=== PATIENT | female | born 1975 | race Caucasian/White ===

== ENCOUNTER 2017-03-15 12:39 | Emergency (ER) | payer BC ==
[2017-03-15] MEDS ORDERED: HYDROmorphone 2 MG/ML SDV IVPUSH ONE ×3 (12:52→16:01)
[2017-03-15] MEDS ORDERED: Metoclopramide 10 MG/2 ML SDV IVPUSH ONE ×2 (12:52→14:26)
[2017-03-15] MEDS ORDERED: Lactated Ringers 1,000 ML IV SCH (13:00)
--- NOTE | 2017-03-15 13:00 | EDM.PDOC ---
ED HPI GENERAL MEDICAL PROBLEM - General Chief Complaint: Abdominal Pain Stated Complaint: SEVERE ABDOMINAL PAIN Time Seen by Provider: 03/15/17 12:50 Source of Information: Reports: Patient History Limitations: Reports: No Limitations - History of Present Illness INITIAL COMMENTS - FREE TEXT/NARRATIVE: 42 yo female with a pHx of gastric bypass presents with a 2+ hr duration of RUQ abdominal pain that began today about mid morning after eating keesh and a donut about 2 hrs before that. Still has her gallbladder. No fever. Has some lingering nausea even though she took Zofran 8 mg orally before arrival. No issues with bowel or bladder function. Onset: today Onset Date: 03/15/17 Onset Time: 10:30 Duration: Hour(s):, Constant Location: Reports: abdomen Quality: Reports: Ache, Pressure Severity: severe Improves with: Reports: None Worsens with: Reports: None Context: Reports: Other (Has GB and ate a fatty breakfast today.) Associated Symptoms: Reports: loss of appetite, nausea/vomiting (no vomiting.) . 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 (see below) (Zofran 8 mg po) Right Upper Abdomen Pain Score (Numeric/FACES): 8 - Related Data Allergies Allergy/AdvReac Type Severity Reaction Status Date / Time cefaclor [From Ceclor] Allergy Hives Verified 03/15/17 12:49 erythromycin base Allergy Nausea Verified 03/15/17 12:49 [Erythromycin Base] ofloxacin [From Floxin] Allergy Anaphylactic Verified 03/15/17 12:49 Shock Penicillins Allergy Hives Verified 03/15/17 12:49 Sulfa (Sulfonamide Allergy Hives Verified 03/15/17 12:49 Antibiotics) Home Meds: Home Meds Acetaminophen/HYDROcodone [[place] 325-7.5 MG] 1 - 2 tab PO Q4H PRN #14 tab [Rx] Escitalopram Oxalate [Lexapro] 20 mg PO DAILY 03/15/17 [History] Gabapentin [Neurontin] 100 mg PO BEDTIME 03/15/17 [History] Gabapentin [Neurontin] 200 mg PO DAILY 03/15/17 [History] ED ROS GENERAL - Review of Systems Review Of Systems: See Below Constitutional: Reports: No Symptoms HEENT: Reports: No Symptoms Respiratory: Reports: No Symptoms Cardiovascular: Reports: No Symptoms Endocrine: Reports: No Symptoms GI/Abdominal: Reports: Abdominal Pain, Anorexia, Decreased Appetite, Nausea. Denies: Black Stool, Bloody Stool, Constipation, Diarrhea, Difficulty Swallowing , Distension, Hematemesis, Hematochezia, Melena, Mucous in Stool, Stool Incontinence, Vomiting : Reports: No Symptoms Musculoskeletal: Reports: No Symptoms Skin: Reports: No Symptoms Neurological: Reports: No Symptoms ED EXAM, GI/ABD - Physical Exam Exam: See Below Exam Limited By: No Limitations General Appearance: Alert, WD/WN, No Apparent Distress Eyes: Bilateral: Normal Appearance, EOMI Ears: Normal External Exam, Normal Canal, Hearing Grossly Normal Nose: Normal Inspection, Normal Mucosa, No Blood Throat/Mouth: Normal Inspection, Normal Lips, Normal Teeth, Normal Oropharynx, Normal Voice, No Airway Compromise Head: Atraumatic, Normocephalic Neck: Normal Inspection, Supple, Non-Tender Respiratory/Chest: No Respiratory Distress, Lungs Clear, Normal Breath Sounds, No Accessory Muscle Use Cardiovascular: Regular Rate, Rhythm, No Edema GI/Abdominal: Normal Bowel Sounds, Soft, No Distention, Tenderness (epigastric and more so in the RUQ), Tripp's Sign. No: Distention, Guarding, Rebound, Rigidity, Hernia, McBurney's Sign Back Exam: Normal Inspection. No: CVA Tenderness (R), CVA Tenderness (L) Extremities: Normal Inspection, Normal Range of Motion, Non-Tender, No Pedal Edema Neurological: Alert, Oriented, CN II-XII Intact, Normal Cognition, No Motor/ Sensory Deficits Psychiatric: Normal Affect, Normal Mood Skin Exam: Warm, Dry, Intact, Normal Color, No Rash Lymphatic: No Adenopathy Course - Vital Signs Text/Narrative:: LR IV @ 150 ml/h, Dilaudid 0.5 mg IV x 3, Reglan 10 mg IV + 5 mg IV, Toradol 30 mg IV GB ultrasound-gallbladder is distended to about 12 cm, no stone seen. Dr. Pederson to see in the ED, called at 1605h. Last Recorded V/S: Last Vital Signs Temp 36.5 C 03/15/17 17:04 Pulse 78 03/15/17 17:04 Resp 16 03/15/17 17:04 BP 125/71 03/15/17 17:04 Pulse Ox 98 03/15/17 17:04 - Orders/Labs/Meds Orders: Active Orders 24 hr Category Date Time Status Abdomen Ltd [US] Stat Exams 03/15/17 14:51 Taken Lactated Ringers [Ringers, Lactated] 1,000 ml Med 03/15/17 13:00 Active IV ASDIRECTED Medication Orders Lactated Ringer's (Ringers, Lactated) 1,000 mls @ 150 mls/hr IV ASDIRECTED QUIQUE Last Admin: 03/15/17 13:11 Dose: 150 mls/hr Labs: Laboratory Tests 03/15/17 03/15/17 03/15/17 Range/Units 13:11 13:11 13:11 WBC 9.1 (4.5-12.0) X10-3/uL RBC 4.21 (3.23-5.20) x10(6)uL Hgb 13.4 (11.5-15.5) g/dL Hct 39.2 (30.0-51.3) % MCV 93.1 (80-96) fL MCH 31.9 (27.7-33.6) pg MCHC 34.3 (32.2-35.4) g/dL RDW 11.7 (11.5-15.5) % Plt Count 246 (125-369) X10(3)uL Sodium 137 (135-145) mmol/L Potassium 3.8 (3.5-5.3) mmol/L Chloride 103 (100-110) mmol/L Carbon Dioxide 25 (23-29) mmol/L BUN 20 (5-20) mg/dL Creatinine 0.7 (0.6-1.3) mg/dL Est Cr Clr Drug Dosing 90.41 mL/min Estimated GFR (MDRD) > 60 (>60) BUN/Creatinine Ratio 28.6 H (9-20) Glucose 104 (80-116) mg/dL Calcium 9.0 (8.6-10.2) mg/dL Total Bilirubin 0.4 (0.1-1.3) mg/dL AST 25 (5-27) IU/L ALT 26 (14-26) IU/L Alkaline Phosphatase 71 (56-112) IU/L C-Reactive Protein < 0.5 (0.0-1.0) mg/dL Total Protein 7.0 (6.0-8.0) g/dL Albumin 4.3 (3.5-5.2) g/dL Globulin 2.7 g/dL Albumin/Globulin Ratio 1.6 Amylase 54 (28-100) U/L Urine Color (YELLOW) Urine Appearance (CLEAR) Urine pH (5.0-6.5) Ur Specific [place] (1.010-1.025) Urine Protein (NEGATIVE) mg/dL Urine Glucose (UA) (NEGATIVE) mg/dL Urine Ketones (NEGATIVE) mg/dL Urine Occult Blood (NEGATIVE) Urine Nitrite (NEGATIVE) Urine Bilirubin (NEGATIVE) Urine Urobilinogen (NEGATIVE) mg/dL Ur Leukocyte Esterase (NEGATIVE) Urine RBC (0) Urine WBC (0) Ur Squamous Epith Cells (NS,R,O) Calcium Oxalate Crystal (NS) Urine Bacteria (NS) 03/15/17 Range/Units 14:17 WBC (4.5-12.0) X10-3/uL RBC (3.23-5.20) x10(6)uL Hgb (11.5-15.5) g/dL Hct (30.0-51.3) % MCV (80-96) fL MCH (27.7-33.6) pg MCHC (32.2-35.4) g/dL RDW (11.5-15.5) % Plt Count (125-369) X10(3)uL Sodium (135-145) mmol/L Potassium (3.5-5.3) mmol/L Chloride (100-110) mmol/L Carbon Dioxide (23-29) mmol/L BUN (5-20) mg/dL Creatinine (0.6-1.3) mg/dL Est Cr Clr Drug Dosing mL/min Estimated GFR (MDRD) (>60) BUN/Creatinine Ratio (9-20) Glucose (80-116) mg/dL Calcium (8.6-10.2) mg/dL Total Bilirubin (0.1-1.3) mg/dL AST (5-27) IU/L ALT (14-26) IU/L Alkaline Phosphatase (56-112) IU/L C-Reactive Protein (0.0-1.0) mg/dL Total Protein (6.0-8.0) g/dL Albumin (3.5-5.2) g/dL Globulin g/dL Albumin/Globulin Ratio Amylase (28-100) U/L Urine Color Yellow (YELLOW) Urine Appearance Clear (CLEAR) Urine pH 5.0 (5.0-6.5) Ur Specific [place] 1.025 (1.010-1.025) Urine Protein Negative (NEGATIVE) mg/dL Urine Glucose (UA) Normal (NEGATIVE) mg/dL Urine Ketones Negative (NEGATIVE) mg/dL Urine Occult Blood Negative (NEGATIVE) Urine Nitrite Negative (NEGATIVE) Urine Bilirubin Negative (NEGATIVE) Urine Urobilinogen Normal (NEGATIVE) mg/dL Ur Leukocyte Esterase Negative (NEGATIVE) Urine RBC 0-5 (0) Urine WBC 0-5 (0) Ur Squamous Epith Cells Occasional (NS,R,O) Calcium Oxalate Crystal Moderate H (NS) Urine Bacteria Rare H (NS) Meds: Medications Generic Name Dose Route Start Last Admin Trade Name Freq PRN Reason Stop Dose Admin Lactated Ringer's 1,000 mls @ 150 mls/hr 03/15/17 13:00 03/15/17 13:11 Ringers, Lactated IV 150 mls/hr ASDIRECTED QUIQUE Administration Discontinued Medications Generic Name Dose Route Start Last Admin Trade Name Freq PRN Reason Stop Dose Admin Hydromorphone HCl 0.5 mg 03/15/17 12:52 03/15/17 13:10 Dilaudid IVPUSH 03/15/17 12:53 0.5 mg ONETIME ONE Administration Hydromorphone HCl 0.5 mg 03/15/17 14:00 03/15/17 14:09 Dilaudid IVPUSH 03/15/17 14:01 0.5 mg ONETIME ONE Administration Hydromorphone HCl 0.5 mg 03/15/17 16:01 03/15/17 16:07 Dilaudid IVPUSH 03/15/17 16:02 0.5 mg ONETIME ONE Administration Ketorolac Tromethamine 30 mg 03/15/17 16:05 03/15/17 16:12 Toradol IVPUSH 03/15/17 16:06 30 mg ONETIME ONE Administration Metoclopramide HCl 10 mg 03/15/17 12:52 03/15/17 13:10 Reglan IVPUSH 03/15/17 12:53 10 mg ONETIME ONE Administration Metoclopramide HCl 5 mg 03/15/17 14:26 03/15/17 14:33 Reglan IVPUSH 03/15/17 14:27 5 mg ONETIME ONE Administration Departure - Departure Time of Disposition: 17:16 Disposition: Home, Self-Care 01 Condition: fair Clinical Impression: Biliary colic - Discharge Information Prescriptions: Acetaminophen/HYDROcodone [[place] 325-7.5 MG] 1 - 2 tab PO Q4H PRN #14 tab PRN Reason: Pain - My Orders Last 24 Hours: My Active Orders 03/15/17 13:00 Lactated Ringers [Ringers, Lactated] 1,000 ml IV ASDIRECTED 03/15/17 14:51 Abdomen Ltd [US] Stat - Assessment/Plan Last 24 Hours: My Active Orders 03/15/17 13:00 Lactated Ringers [Ringers, Lactated] 1,000 ml IV ASDIRECTED 03/15/17 14:51 Abdomen Ltd [US] Stat
[2017-03-15] MEDS ORDERED: Morphine 15 MG Tab.ER PO ONE (13:55)
[2017-03-15] MEDS ORDERED: Ketorolac 30 MG/ML SDV IVPUSH ONE (16:05)
[2017-03-15 17:06] VITALS: BP 125/71
--- NOTE | 2017-03-15 17:24 | PCM.CONS ---
H&P History of Present Illness - General Date of Service: 03/15/17 Source of Information: Patient History Limitations: Reports: No Limitations - History of Present Illness Onset of Symptoms: Reports: today, sudden Symptom Onset Date: 03/15/17 Duration of Symptoms: Reports: Hour(s): Location: Reports: abdomen (epigastric and RUQ), back (beneath right shoulder blade) Quality: Reports: Ache, Pressure Worsens with: Reports: Eating Associated Symptoms: Reports: nausea/vomiting Right Upper Abdomen Pain Score (Numeric/FACES): 8 - Related Data Allergies/Adverse Reactions: Allergies Allergy/AdvReac Type Severity Reaction Status Date / Time cefaclor [From Ceclor] Allergy Hives Verified 03/15/17 12:49 erythromycin base Allergy Nausea Verified 03/15/17 12:49 [Erythromycin Base] ofloxacin [From Floxin] Allergy Anaphylactic Verified 03/15/17 12:49 Shock Penicillins Allergy Hives Verified 03/15/17 12:49 Sulfa (Sulfonamide Allergy Hives Verified 03/15/17 12:49 Antibiotics) Home Medications: Home Meds Acetaminophen/HYDROcodone [[place] 325-7.5 MG] 1 - 2 tab PO Q4H PRN #14 tab [Rx] Escitalopram Oxalate [Lexapro] 20 mg PO DAILY 03/15/17 [History] Gabapentin [Neurontin] 100 mg PO BEDTIME 03/15/17 [History] Gabapentin [Neurontin] 200 mg PO DAILY 03/15/17 [History] 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 Social & Family History - Tobacco Use Smoking Status *Q: Former Smoker Years of Tobacco use: 2 Used Tobacco, but Quit: No - Alcohol Use Days Per Week of Alcohol Use: 1 Number of Drinks Per Day: 3 Total Drinks Per Week: 3 - Recreational Drug Use Recreational Drug Use: No H&P Review of Systems - Review of Systems: Review Of Systems: See Below General: Denies: Fever, Chills HEENT: Denies: No Symptoms Pulmonary: Denies: No Symptoms Cardiovascular: Denies: Chest Pain Gastrointestinal: Reports: Abdominal Pain (RUQ, now 12/15 after pain meds) Genitourinary: Reports: No Symptoms Skin: Denies: Jaundice Exam - Exam Exam: See Below - Vital Signs Vital Signs: Last Vital Signs Temp 97.7 F 03/15/17 17:04 Pulse 78 03/15/17 17:04 Resp 16 03/15/17 17:04 BP 125/71 03/15/17 17:04 Pulse Ox 98 03/15/17 17:04 Weight: 83.461 kg - Exam General: Alert, Oriented Lungs: Clear to Auscultation, Normal Respiratory Effort Cardiovascular: Regular Rate, Regular Rhythm Abdomen: Soft, Tenderness (in RUQ), Tripp's Sign. No: Hernia, Mass - Patient Data Lab Results last 24 hrs: Laboratory Results - last 24 hr 03/15/17 03/15/17 03/15/17 Range/Units 13:11 13:11 13:11 WBC 9.1 (4.5-12.0) X10-3/uL RBC 4.21 (3.23-5.20) x10(6)uL Hgb 13.4 (11.5-15.5) g/dL Hct 39.2 (30.0-51.3) % MCV 93.1 (80-96) fL MCH 31.9 (27.7-33.6) pg MCHC 34.3 (32.2-35.4) g/dL RDW 11.7 (11.5-15.5) % Plt Count 246 (125-369) X10(3)uL Sodium 137 (135-145) mmol/L Potassium 3.8 (3.5-5.3) mmol/L Chloride 103 (100-110) mmol/L Carbon Dioxide 25 (23-29) mmol/L BUN 20 (5-20) mg/dL Creatinine 0.7 (0.6-1.3) mg/dL Est Cr Clr Drug Dosing 90.41 mL/min Estimated GFR (MDRD) > 60 (>60) BUN/Creatinine Ratio 28.6 H (9-20) Glucose 104 (80-116) mg/dL Calcium 9.0 (8.6-10.2) mg/dL Total Bilirubin 0.4 (0.1-1.3) mg/dL AST 25 (5-27) IU/L ALT 26 (14-26) IU/L Alkaline Phosphatase 71 (56-112) IU/L C-Reactive Protein < 0.5 (0.0-1.0) mg/dL Total Protein 7.0 (6.0-8.0) g/dL Albumin 4.3 (3.5-5.2) g/dL Globulin 2.7 g/dL Albumin/Globulin Ratio 1.6 Amylase 54 (28-100) U/L Urine Color (YELLOW) Urine Appearance (CLEAR) Urine pH (5.0-6.5) Ur Specific [place] (1.010-1.025) Urine Protein (NEGATIVE) mg/dL Urine Glucose (UA) (NEGATIVE) mg/dL Urine Ketones (NEGATIVE) mg/dL Urine Occult Blood (NEGATIVE) Urine Nitrite (NEGATIVE) Urine Bilirubin (NEGATIVE) Urine Urobilinogen (NEGATIVE) mg/dL Ur Leukocyte Esterase (NEGATIVE) Urine RBC (0) Urine WBC (0) Ur Squamous Epith Cells (NS,R,O) Calcium Oxalate Crystal (NS) Urine Bacteria (NS) 03/15/17 Range/Units 14:17 WBC (4.5-12.0) X10-3/uL RBC (3.23-5.20) x10(6)uL Hgb (11.5-15.5) g/dL Hct (30.0-51.3) % MCV (80-96) fL MCH (27.7-33.6) pg MCHC (32.2-35.4) g/dL RDW (11.5-15.5) % Plt Count (125-369) X10(3)uL Sodium (135-145) mmol/L Potassium (3.5-5.3) mmol/L Chloride (100-110) mmol/L Carbon Dioxide (23-29) mmol/L BUN (5-20) mg/dL Creatinine (0.6-1.3) mg/dL Est Cr Clr Drug Dosing mL/min Estimated GFR (MDRD) (>60) BUN/Creatinine Ratio (9-20) Glucose (80-116) mg/dL Calcium (8.6-10.2) mg/dL Total Bilirubin (0.1-1.3) mg/dL AST (5-27) IU/L ALT (14-26) IU/L Alkaline Phosphatase (56-112) IU/L C-Reactive Protein (0.0-1.0) mg/dL Total Protein (6.0-8.0) g/dL Albumin (3.5-5.2) g/dL Globulin g/dL Albumin/Globulin Ratio Amylase (28-100) U/L Urine Color Yellow (YELLOW) Urine Appearance Clear (CLEAR) Urine pH 5.0 (5.0-6.5) Ur Specific [place] 1.025 (1.010-1.025) Urine Protein Negative (NEGATIVE) mg/dL Urine Glucose (UA) Normal (NEGATIVE) mg/dL Urine Ketones Negative (NEGATIVE) mg/dL Urine Occult Blood Negative (NEGATIVE) Urine Nitrite Negative (NEGATIVE) Urine Bilirubin Negative (NEGATIVE) Urine Urobilinogen Normal (NEGATIVE) mg/dL Ur Leukocyte Esterase Negative (NEGATIVE) Urine RBC 0-5 (0) Urine WBC 0-5 (0) Ur Squamous Epith Cells Occasional (NS,R,O) Calcium Oxalate Crystal Moderate H (NS) Urine Bacteria Rare H (NS) Result Diagrams: 03/15/17 13:11 03/15/17 13:11 Imaging Impressions last 24 hrs: GB US shows cholecystitis Consult PN Assessment/Plan Procedures: Procedures EMERGENCY DEPT VISIT (07/31/13) EMERGENCY DEPT VISIT (07/30/13) IMMUNIZATION ADMIN (08/07/13) MRI JOINT UPR EXTREM W/O DYE (02/25/14) RABIES IG HEAT TREATED (07/31/13) RABIES VACCINE IM (08/14/13) RPR F/E/E/N/L/M 2.6-5.0 CM (07/30/13) RPR S/N/AX/GEN/TRNK 2.5CM/< (07/30/13) THER/PROPH/DIAG INJ SC/IM (08/14/13) US XTR NON-VASC COMPLETE (02/09/14) (1) Cholecystitis without calculus SNOMED Code(s): 77204066 Code(s): K81.9 - CHOLECYSTITIS, UNSPECIFIED Current Visit: Yes Problem List Initiated/Reviewed/Updated: Yes My Orders last 24 hours: Return in am for lap jose ramon. Procedure risks and complications reviewed and informed consent obtained.
--- NOTE | 2017-03-16 09:45 | US ---
INDICATION: Right upper quadrant pain going to back. RIGHT UPPER QUADRANT/GALLBLADDER ULTRASOUND: Multiple ultrasonic images were obtained, revealing the common bile duct to be normal in caliber at 4.5 to 5.8 mm. The gallbladder was enlarged, and the wall is slightly thickened. The gallbladder measured 12 x 4.5 x 4.7 cm. There is a positive ultrasonic Tripp s sign also noted. No pericholecystic fluid was seen. Findings, however, would be compatible with acute cholecystitis, until proven otherwise. The right kidney appeared normal measuring 10.8 x 5.1 x 5.9 cm. The liver appeared to be normal. The pancreas had a normal appearance. IMPRESSION: Enlarged gallbladder with positive ultrasonic [place] sign and slight thickening of the wall. The possibility of cholecystitis cannot be excluded, although a calculus is not identified at this time. Report was given by phone to Dr. Loomis at 1604 hours on 03/15/2017. NABILD
== END 2017-03-15 17:51 | disposition home or self-care (01) ==
LOC: FB.ED 12:39
DX: K80.50 Calculus of bile duct without cholangitis or cholecystitis without obstruction (principal); Z79.899 Other long term (current) drug therapy; Z88.0 Allergy status to penicillin; Z88.1 Allergy status to other antibiotic agents; Z88.2 Allergy status to sulfonamides
CPT/HCPCS: 36415; 76705; 80053; 81001; 82150; 85027; 86140; 96361; 96374; 96375; 96376; 99285; J1170; J1885; J2765; J7120

== ENCOUNTER 2017-03-16 10:10 | Day surgery (SDC) | payer BC ==
[2017-03-16] MEDS ORDERED: Lactated Ringers 1,000 ML IV SCH (11:15)
[2017-03-16] MEDS ORDERED: HYDROmorphone 2 MG/ML SDV IVPUSH PRN (12:51)
[2017-03-16] MEDS ORDERED: fentaNYL 100 MCG/2 ML SDV IVPUSH PRN ×2 (12:51→13:21)
[2017-03-16] MEDS ORDERED: Promethazine 25 MG/ML SDV IV PRN (12:51)
[2017-03-16] MEDS ORDERED: Dexamethasone 4 MG/ML 5 ML MDV IVPUSH ONE (13:00)
[2017-03-16] MEDS ORDERED: Midazolam 1 MG/ML 2 ML SDV IV ONE (13:00)
[2017-03-16] MEDS ORDERED: ePHEDrine 50 MG/ML SDV IV ONE (13:00)
[2017-03-16] MEDS ORDERED: fentaNYL 100 MCG/2 ML SDV IV ONE (13:00)
[2017-03-16] MEDS ORDERED: Rocuronium 50 MG/5 ML Vial IV ONE (13:00)
[2017-03-16] MEDS ORDERED: Neostigmine Methylsulfate 1 MG/ML 5 ML Syringe IV ONE (13:00)
[2017-03-16] MEDS ORDERED: ceFAZolin 1 GM Vial IV ONE (13:00)
[2017-03-16] MEDS ORDERED: Ondansetron 4 MG/2 ML SDV IVPUSH ONE (13:00)
[2017-03-16] MEDS ORDERED: Lactated Ringers 1,000 ML IV ONE (13:00)
[2017-03-16] MEDS ORDERED: Scopolamine 1.5 MG Transdermal Patch TOP ONE (13:00)
[2017-03-16] MEDS ORDERED: Propofol 200 MG/20 ML SDV IV ONE (13:00)
[2017-03-16] MEDS ORDERED: HYDROmorphone 2 MG/ML SDV IV ONE (13:00)
[2017-03-16] MEDS ORDERED: Succinylcholine 200 MG/10 ML MDV IV ONE (13:00)
--- NOTE | 2017-03-16 14:38 | PCM.HPR ---
H & P Addendum review - H & P Addendum Review Date of Original H & P: 03/15/17 Date Reviewed: 03/16/17 Time Reviewed: 13:00 Patient was examined: No Changes Please note any Changes: Cont to have RUQ pain
--- NOTE | 2017-03-16 14:39 | PCM.OPNOTE ---
- General Post-Op/Procedure Note Date of Surgery/Procedure: 03/16/17 Operative Procedure(s): Lap Sara Findings: Acute Gangrenous Cholecystitis Pre Op Diagnosis: Acute Cholecystitis Post-Op Diagnosis: Same Anesthesia Technique: General ET tube Primary Surgeon: Armani Pederson Anesthesia Provider: Dashawn Mcqueen Pathology: Gallbladder and cultures EBL in mLs: 50 Complications: None Condition: Good
[2017-03-16] MEDS ORDERED: Ondansetron 4 MG/2 ML SDV IVPUSH PRN (14:41)
[2017-03-16] MEDS ORDERED: Morphine 2 MG/ML Syringe IVPUSH PRN (14:45)
[2017-03-16] MEDS: Acetaminophen/HYDROcodone 325-5 MG Tab PO PRN ×2 (16:41→20:36)
[2017-03-16] MEDS: Lactated Ringers 1,000 ML IV SCH (18:17)
--- NOTE | 2017-03-16 20:25 | OR ---
DATE OF OPERATION: 03/16/2017 SURGEON: Armani Pederson MD PREOPERATIVE DIAGNOSIS: Acute cholecystitis. POSTOPERATIVE DIAGNOSIS: Acute gangrenous cholecystitis. PROCEDURE: Laparoscopic cholecystectomy. ANESTHESIA: General. DESCRIPTION OF PROCEDURE: The patient was brought to the operating room, where general endotracheal anesthesia was administered. The abdomen was prepped with ChloraPrep and draped sterilely. An incision was made through previous scar just above the umbilicus and extended to the fascia. Fascia was incised and peritoneal cavity entered without difficulty. The Vern cannulator was introduced and pneumoperitoneum obtained. The remaining three 5 mm ports were placed in the usual positions. The patient was placed in reverse Trendelenburg position and rotated to the left. The gallbladder was covered with omentum that was easily taken off and revealed an acute gangrenous cholecystitis. Gallbladder wall was tense and the gallbladder was aspirated with the trocar, so I could grasp it. The gallbladder was retracted cephalad and careful dissection was used to dissect out the cystic duct and cystic artery with some difficulty because of significant inflammation and swelling. Once the anatomy was confirmed in the lower third, the gallbladder was freed up from the bed of the liver, I doubly clipped the cystic artery proximally and once distally and then transected. The anatomy was then reinspected and the cystic duct could be seen entering the gallbladder and extending towards the common bile duct. This was doubly clipped proximally, once distally, and then transected. The gallbladder was then removed from the bed of the liver with some difficulty because of inflammation and oozing along the entire liver bed. Some bile leakage did occur through weak areas of the gallbladder. Once the gallbladder was completely freed up, it was brought out through the umbilical site and I did send some fluid for culture. Thick clear fluid and it did not appear to be infected. The right upper quadrant was thoroughly inspected and minimal oozing had stopped along the entire areas of dissection. I did place a Nu-Knit Surgicel in the bed of the liver. Clips were in place. A 1 L of irrigation was used during the procedure. The ports were removed under direct vision and remained hemostatic. Umbilical fascia was closed with [id number] #0 Vicryl. Skin was closed with #4-0 Vicryl subcuticular sutures. Benzoin and Steri-Strips were placed and Band-Aids applied. The patient tolerated the procedure well. Estimated blood loss 50 mL. The patient returned to postanesthesia in stable condition. /[id number] FABY/BECK
[2017-03-16] MEDS: ceFAZolin 1 GM in Sodium Chloride 0.9% 50 ML IV SCH (20:38)
[2017-03-17] MEDS: Acetaminophen/HYDROcodone 325-5 MG Tab PO PRN ×2 (00:32→04:47)
[2017-03-17 02:31] VITALS: BP 109/67
[2017-03-17] MEDS: Lactated Ringers 1,000 ML IV SCH (02:55)
[2017-03-17] MEDS: ceFAZolin 1 GM in Sodium Chloride 0.9% 50 ML IV SCH (04:48)
== END 2017-03-17 09:27 | disposition home or self-care (01) ==
LOC: FB.SDS 10:10 → FB.MS 15:35 → FB.SDS 03-17 09:27
PROVIDERS: ATTEND Surgery
PROC: 0FT44ZZ Resection of Gallbladder, Percutaneous Endoscopic Approach (ICD-10-PCS; principal; 2017-03-16)
DX: K80.00 Calculus of gallbladder with acute cholecystitis without obstruction (principal); F41.9 Anxiety disorder, unspecified; Z79.899 Other long term (current) drug therapy; Z88.0 Allergy status to penicillin; Z88.2 Allergy status to sulfonamides; Z88.8 Allergy status to other drugs, medicaments and biological substances; Z87.891 Personal history of nicotine dependence
CPT/HCPCS: 47562; 87070; 87075; 87205; 88304; 94150; A9270; J0330; J0690; J1100; J1170; J2250; J2405; J2704; J3010; J7050; J7120

== ENCOUNTER 2019-07-22 07:01 | Emergency (ER) | payer BC ==
--- NOTE | 2019-07-22 09:30 | EDM.PDOC ---
ED HPI GENERAL MEDICAL PROBLEM - General Chief Complaint: Upper Extremity Injury/Pain Stated Complaint: BOTH HAND SWOLLING AND NUMB Time Seen by Provider: 07/22/19 08:05 Source of Information: Reports: Patient History Limitations: Reports: No Limitations - History of Present Illness INITIAL COMMENTS - FREE TEXT/NARRATIVE: Patient presents with concern for a strange tingling in her hands which was there when she woke up this morning. She describes it is primarily her middle 3 fingers. She states that Sunday her hands were a little bit achy, and her fingers that seems swollen. Today it was much worse. She was started on prednisone last week for a swelling on her neck that they weren't sure what it was. She otherwise does not have any symptoms other than just kind of some general bloating feeling. She has never had anything like this before. She has no history of carpal tunnel or any other nerve entrapment. She denies fever, chills or sweats, cough, neck pain, pain radiating down her arm. Bilateral hands & joints Pain Score (Numeric/FACES): 2 - Related Data Allergies Allergy/AdvReac Type Severity Reaction Status Date / Time cefaclor [From Ceclor] Allergy Hives Verified 07/22/19 07:20 erythromycin base Allergy Nausea Verified 07/22/19 07:20 [Erythromycin Base] ofloxacin [From Floxin] Allergy Anaphylactic Verified 07/22/19 07:20 Shock Penicillins Allergy Hives Verified 07/22/19 07:20 Sulfa (Sulfonamide Allergy Hives Verified 07/22/19 07:20 Antibiotics) Home Meds: Home Meds Escitalopram Oxalate [Lexapro] 20 mg PO DAILY 03/15/17 [History] RX: Gabapentin [Neurontin] 100 mg PO BEDTIME 03/15/17 [History] RX: Gabapentin [Neurontin] 200 mg PO DAILY 03/15/17 [History] ALPRAZolam [Xanax] 0.5 mg PO BEDTIME 03/16/17 [History] Acetaminophen/HYDROcodone [[place] 325-7.5 MG] 7.5 - 325 tab PO Q4H PRN 03/16/17 [ History] Ca Carbonate/Vitamin D3/Vit K [Calcium + D Soft Chewable Tab] 5 - 120 mg PO BID 03/16/17 [History] Cyanocobalamin (Vitamin B-12) [B-12] 1,000 mcg SL DAILY 03/16/17 [History] Escitalopram [Lexapro] 20 mg PO DAILY 03/16/17 [History] Estrogens, Conjugated [Premarin Vaginal Crm] 1 applic VAG WEEKLY 03/16/17 [ History] Fluticasone Propionate [Flonase] 16 gm NS DAILY 03/16/17 [History] Omeprazole Magnesium [Prilosec Otc] 40 mg PO DAILY 03/16/17 [History] Ondansetron [Zofran ODT] 4 mg PO Q4H PRN 03/16/17 [History] RX: Ascorbic Acid 500 mg PO DAILY 03/16/17 [History] RX: Biotin 5,000 mcg PO DAILY 03/16/17 [History] Vitamin B Complex [B Complex] 1 each PO DAILY 03/16/17 [History] Past Medical History Gastrointestinal History: Reports: [facility] History: Reports: Endometriosis, Polycystic Ovaries Musculoskeletal History: Reports: Arthritis Psychiatric History: Reports: Anxiety Endocrine/Metabolic History: Reports: Obesity/BMI 30+ Dermatologic History: Reports: Eczema - Infectious Disease History Infectious Disease History: Reports: Chicken Pox, Measles - Past Surgical History HEENT Surgical History: Reports: Adenoidectomy, Tonsillectomy GI Surgical History: Reports: Bariatric Procedure, Cholecystectomy Female Surgical History: Reports: Hysterectomy, Other (See Below) Social & Family History - Family History Endocrine/Metabolic: Reports: Diabetes, type II Immunologic: Reports: Other (See Below) Other Immunologic Family History: RA - Tobacco Use Smoking Status *Q: Former Smoker Used Tobacco, but Quit: Yes Month/Year Tobacco Last Used: nov - Caffeine Use Caffeine Use: Reports: Coffee, Soda, Tea - Alcohol Use Alcohol Use History: Yes Total Drinks Per Week Comment: Social - Recreational Drug Use Recreational Drug Use: No - Living Situation & Occupation 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 ED EXAM, GENERAL - Physical Exam Exam: See Below Free Text/Narrative:: Gen.: Alert, pleasant no acute distress. Neck is supple and there is no cervical lymphadenopathy. There is a small palpable lump underneath the skin on the right side at the posterior aspect over the paraspinal muscles. She has no obvious joint swelling and no palpable edema. She has +2 out of 4 reflexes in both the upper and lower extremities and muscle strength +5 out of 5 at all spinal levels in the upper extremities with no deficit. She has negative Tinel' s and Phalen's at both the radial and ulnar tunnel. Adson's test is likewise negative. Her complaint is distributed over the middle 3 fingers but does not seem to follow any particular anatomic pattern Course - Vital Signs Text/Narrative:: Discussed with patient that I am uncertain as to the cause of her symptoms, but would recommend if possible for her stopping the prednisone. During the course of her stay she did hear from her primary that she should stop the prednisone. She does not have any clear nerve entrapment, radiculopathy or other abnormalities on exam today. Hopefully her symptoms will clear up with cessation of the prednisone, if not follow up with PCP. She is in agreement with this plan and has no further questions Last Recorded V/S: Last Vital Signs Temp 36.8 C 07/22/19 07:13 Pulse 81 07/22/19 09:10 Resp 18 07/22/19 09:10 BP 130/86 07/22/19 09:10 Pulse Ox 100 07/22/19 09:10 Departure - Departure Time of Disposition: :27 Disposition: Home, Self-Care 01 Condition: Good Clinical Impression: Peripheral neuropathy - Discharge Information *PRESCRIPTION DRUG MONITORING PROGRAM REVIEWED*: Not Applicable *COPY OF PRESCRIPTION DRUG MONITORING REPORT IN PATIENT JIGNA: Not Applicable Instructions: Peripheral Neuropathy Referrals: Meseret Dixon NP [Primary Care Provider] - Forms: ED Department Discharge Additional Instructions: stop prednisone followup with PCP your pattern of pain and stiffness does not follow a specific nerve distribution that I am aware of at this time. Hopefully it will improve off the prednisone. If not see PCP for next steps.
[2019-07-22 10:32] VITALS: BP 130/86; PULSE 81
== END 2019-07-22 09:35 | disposition home or self-care (01) ==
LOC: FB.ED 07:01
DX: G62.9 Polyneuropathy, unspecified (principal); K21.9 Gastro-esophageal reflux disease without esophagitis; F41.9 Anxiety disorder, unspecified; E66.9 Obesity, unspecified; Z88.2 Allergy status to sulfonamides; Z88.0 Allergy status to penicillin; Z88.1 Allergy status to other antibiotic agents; Z79.899 Other long term (current) drug therapy; Z88.8 Allergy status to other drugs, medicaments and biological substances; Z68.30 Body mass index [BMI] 30.0-30.9, adult; Z90.49 Acquired absence of other specified parts of digestive tract; Z98.890 Other specified postprocedural states
CPT/HCPCS: 99283